=== PATIENT | male | born 1950 | race Caucasian/White ===

== ENCOUNTER 2018-04-24 12:07 | Inpatient (IN) | payer MEDICARE, MEDICAID ==
[2018-04-24 12:28] VITALS: BP 136/90
[2018-04-24] MEDS ORDERED: Maalox 30 mL Cup PO PRN (12:44)
[2018-04-24] MEDS ORDERED: Magnesium Hydroxide (MOM) 30 mL UDC PO PRN (12:44)
[2018-04-25] MEDS: Multivitamin Tab PO SCH (09:04)
--- NOTE | 2018-04-25 09:38 | Diagnostic Imaging Report ---
CHEST X-RAY: AP view INDICATION: Pneumonia COMPARISON: None FINDINGS: Bibasal atelectatic changes are seen. No focal consolidation or pleural effusions. There may be left lower lung zone pleural calcifications. Right apical densities with probable scarring is also noted. Mild cardiomegaly is noted. Degenerative changes of the spine are noted. IMPRESSION: Bibasal atelectatic changes. No focal consolidation identified. There may be calcifications along the left lower lung zone pleura and possible right apex with right apical scarring. Please correlate with clinical history and old exams. CT chest would further clarify. Mild cardiomegaly.
--- NOTE | 2018-04-25 16:52 | Psychiatric Evaluation ---
DATE OF SERVICE: 04/25/2018 IDENTIFYING DATA: The patient is a 68-year-old male admitted on a 5150 as being gravely disabled. CHIEF COMPLAINT: "I am feeling depressed." HISTORY OF PRESENT ILLNESS: This is the first psychiatric hospitalization to [facility] who has been referred from the [facility]. The patient is reported to be confused and depressed and has no place to return to and the patient has been cleared medically at [facility] and has been admitted over here for stabilization. During the evaluation, the patient is stating that he has been feeling depressed, has been having problem with the sleep and appetite and feeling helpless and hopeless, could not figure it out what he has to do. The patient is noted to be confused and is also noted to be disheveled. PAST PSYCHIATRIC HISTORY: None. MEDICAL HISTORY: Physical examination is requested by Dr. Abhilash Anderson. SUBSTANCE ABUSE HISTORY: None. PHYSICAL OR SEXUAL ABUSE HISTORY: None. LEGAL PROBLEMS: None at this time. STRENGTH AND ASSETS: The patient is motivated. MENTAL STATUS EXAMINATION: The patient is a 68-year-old, looking his stated age, superficially cooperative. Eye contact is poor. Mood is depressed. Affect is constricted. The patient has been having difficult time to cope with the stress. The patient is alert and oriented to place and the patient has been having problem with short-term as well as long-term memory deficits. The patient has no suicidal plans, but is noted to be feeling frustrated and feeling helpless and hopeless. DIAGNOSTIC IMPRESSION: AXIS I: Major depressive disorder, first episode. B. Dementia. AXIS II: None. AXIS III: As per Dr. Hung. IMMEDIATE TREATMENT PLAN: The patient is going to be observed on inpatient unit, provided with supportive psychotherapy. The patient is going to be closely monitored and encouraged to verbalize the concerns rather than to act out. Once stabilized, the patient is going to be discharged to [facility], to be followed up on an outpatient basis. The patient is going to be started with low dose of the Lexapro. environmental services coordinator going to be involved to help the patient with the placement. JOB# [id number]
--- NOTE | 2018-04-25 23:27 | History & Physical ---
ADMIT DATE: HISTORY OF PRESENT ILLNESS: The patient came to the Geropsych Unit and was admitted. The patient was referred from [facility]. The patient is very confused and very depressed and he was admitted for that. The patient has no major medical problems or surgical problem. PHYSICAL EXAMINATION: HEAD: Normal. ENT: Normal. NECK: Supple, nontender. LUNGS: Clear. CARDIOVASCULAR SYSTEM: S1, S2 heard. ABDOMEN: Soft. Bowel sounds are heard. CENTRAL NERVOUS SYSTEM: Grossly normal. DIAGNOSES: Major depressive disorder and dementia. PLAN: The patient is being admitted. I will follow along with Dr. Martinez. JOB# [id number]
[2018-04-26] MEDS: Multivitamin Tab PO SCH (09:37)
--- NOTE | 2018-04-26 15:39 | General Progress Note ---
Subjective - Review of Systems Events since last encounter: patient awake depressed withdrawn Objective - Physical Exam Vitals and I&O: Vital Signs Temp 98.9 F 04/26/18 15:10 Pulse 72 04/26/18 15:10 Resp 20 04/26/18 15:10 BP 144/78 04/26/18 15:10 Pulse Ox 96 04/26/18 15:10 Intake & Output 04/25/18 04/26/18 04/26/18 18:59 06:59 18:59 Intake Total 240 Balance 240 Intake: Oral 240 Other: # Voids 1 # Bowel Movements 0 Active Medications: Current Medications Acetaminophen (Tylenol) 650 mg PO Q4HR PRN PRN Reason: Mild Pain / Temp above 100 Stop: 06/23/18 12:43 Al Hydrox/Mg Hydrox/Simethicone (Maalox) 30 ml PO Q4HR PRN PRN Reason: GI DISTRESS Stop: 06/23/18 12:43 Escitalopram Oxalate (Lexapro) 10 mg PO DAILY BE; Protocol Stop: 06/24/18 08:59 Last Admin: 04/26/18 09:37 Dose: 10 mg Lorazepam (Ativan) 0.5 mg PO Q4HR PRN; Protocol PRN Reason: Anxiety Stop: 05/24/18 12:43 Magnesium Hydroxide (Milk Of Magnesia) 30 ml PO HS PRN PRN Reason: Constipation Multivitamins/Vitamin C (Theragran) 1 tab PO DAILY BE Stop: 06/24/18 08:59 Last Admin: 04/26/18 09:37 Dose: 1 tab Zolpidem Tartrate (Ambien) 5 mg PO HS PRN PRN Reason: Insomnia Stop: 06/23/18 12:43
--- NOTE | 2018-04-26 23:29 | Consultation ---
DATE OF CONSULTATION: 04/26/2018 REFERRING PHYSICIAN: Bishnu Martinez MD TYPE OF CONSULTATION: Psychology. HISTORY OF PRESENT ILLNESS: The patient is a 68-year-old male. The patient was transferred from [facility] to the Geropsychiatric unit here on a 5150 as being gravely disabled. Record review indicates the patient had become very confused and depressed and was unclear about where he is living. The patient reports that he is feeling depressed, but denied feeling helpless or hopeless. The patient seems to be essentially confused and disoriented. The patient denied any suicidal ideation, plan or intention or any wish to . PAST MEDICAL HISTORY: Please see history and physical by Dr. Hung. PAST PSYCHIATRIC HISTORY: No records are available. There is no history. SUBSTANCE ABUSE HISTORY: The patient denied any history. PSYCHOSOCIAL HISTORY: The patient is disoriented and did not know his place of residence. The patient did not respond to occupational or educational history or mu-ism affiliation questions. The patient denies any history of physical abuse. The patient did not answer the question about current legal problems. The patient continued to state that he wishes to return home, but does not know where he is living. academic services coordinator is involved in the patient's care and possible placement along with the attending psychiatrist. MENTAL STATUS EXAMINATION: The patient appears to be his stated age. The patient's attitude is cooperative. Eye contact is fair. Speech is spontaneous. Mood is depressed. Affect is constricted. The patient seems motivated for treatment. The patient denied any suicidal ideation, plan or intention. The patient denied any auditory or visual hallucinations. The patient presents as confused with possible short term and long-term deficits. There are cognitive deficits as well. The patient's behavior has been compliant with care and treatment. Impulse control is fair. Concentration is poor. The patient was unable to repeat 3 items given to him in the first and second time. The patient was unable to recall any of the items after several minutes. Short term and remote computer terminal operator memory seemed to be impaired. The patient did not participate in the interpretation of proverbs. Sensorium is alert and oriented to self and place only. Insight is poor. Judgment is compromised. DIAGNOSTIC IMPRESSION: AXIS I: Major depressive disorder, first episode, moderate to severe. AXIS II: Deferred. AXIS III: Please see history and physical by Dr. Abhilash. TREATMENT PLAN: The patient has been seen by Dr. Martinez for psychiatric evaluation and for the management of the patient's psychotropic medications. Evaluation for possible dementia should be considered. We will provide supportive psychotherapy and encourage the patient to be able to verbalize his concerns. We will provide reality orientation, differentiation and integration. We will provide coping strategies for phase of life issues. The patient is being started on a low dose of Lexapro according to the attending psychiatrist. academic services coordinator will be involved to help the patient with possible placement. Thank you, Dr. Martinez, for this consult and the opportunity to participate in this patient's care. JOB# [id number] DONALD
--- NOTE | 2018-04-27 02:22 | Progress Notes ---
DATE: 04/26/2018 PSYCHIATRIC PROGRESS NOTE SUBJECTIVE: Staff was spoken to. The patient is interviewed. Mood is noted to be irritable. Affect is constricted. The patient has been going on a tangent. Insight and judgment are noted to be very much impaired. Impulse control is noted to be poor. The patient has no place to return to. Coping skills at this time are noted to be extremely poor. ASSESSMENT: The patient is still depressed and gravely disabled and has no place to return to. PLAN: To continue the patient with supportive therapy. I encouraged the patient to verbalize the concerns rather than to act out. JOB# [id number]
[2018-04-27] MEDS: Multivitamin Tab PO SCH (08:35)
--- NOTE | 2018-04-27 15:42 | Progress Notes ---
DATE: 04/27/2018 SUBJECTIVE: Staff was spoken to. The patient is interviewed. Mood is noted to be irritable. Affect is constricted. Coping skills are noted to be still poor. The patient has been having difficult time to cope with the stress. Personal hygiene is noted to be extremely poor. The patient has no place to return to and the patient has been displaying short term memory deficits, but long-term memory seems to be fair. ASSESSMENT: The patient is still depressed and awaiting placement. PLAN: To continue the patient with the supportive therapy. Encouraged the patient verbalize the consent rather than to act out. JOB# [id number]
[2018-04-28] MEDS: Multivitamin Tab PO SCH (09:28)
--- NOTE | 2018-04-28 14:12 | General Progress Note ---
Subjective - Review of Systems Events since last encounter: patient still depressed withdrawn waiting for placement Objective - Physical Exam Vitals and I&O: Vital Signs Temp 0 F 04/28/18 06:28 Pulse 83 04/27/18 20:10 Resp 19 04/27/18 20:10 BP 133/72 04/27/18 20:10 Pulse Ox 97 04/27/18 20:10 Intake & Output 04/27/18 04/28/18 04/28/18 18:59 06:59 18:59 Intake Total 900 120 Balance 900 120 Intake: Oral 900 120 Other: # Voids 4 3 # Bowel Movements 1 0 Active Medications: Current Medications Acetaminophen (Tylenol) 650 mg PO Q4HR PRN PRN Reason: Mild Pain / Temp above 100 Stop: 06/23/18 12:43 Al Hydrox/Mg Hydrox/Simethicone (Maalox) 30 ml PO Q4HR PRN PRN Reason: GI DISTRESS Stop: 06/23/18 12:43 Escitalopram Oxalate (Lexapro) 10 mg PO DAILY BE; Protocol Stop: 06/24/18 08:59 Last Admin: 04/28/18 09:28 Dose: 10 mg Lorazepam (Ativan) 0.5 mg PO Q4HR PRN; Protocol PRN Reason: Anxiety Stop: 05/24/18 12:43 Magnesium Hydroxide (Milk Of Magnesia) 30 ml PO HS PRN PRN Reason: Constipation Multivitamins/Vitamin C (Theragran) 1 tab PO DAILY BE Stop: 06/24/18 08:59 Last Admin: 04/28/18 09:28 Dose: 1 tab Zolpidem Tartrate (Ambien) 5 mg PO HS PRN PRN Reason: Insomnia Stop: 06/23/18 12:43
--- NOTE | 2018-04-29 01:25 | Progress Notes ---
DATE: 04/28/2018 PSYCHIATRIC PROGRESS NOTE Staff was spoken to. The patient is interviewed. Mood is noted to be irritable. Affect is constricted. Insight and judgment noted to be still impaired. Impulse control is noted to be limited. Coping skills are noted to be limited. The patient is getting easily paranoid. The patient has been going on a tangent and not able to contract for safety. The patient has also been complaining of insomnia. In view of this one, the patient is going to be placed on the Seroquel 12.5 mg at bedtime and the patient is going to be followed up. The patient has no place to return to. JOB# [id number]
[2018-04-29] MEDS: Multivitamin Tab PO SCH (08:22)
--- NOTE | 2018-04-29 11:39 | General Progress Note ---
Subjective - Review of Systems Events since last encounter: patient still irritable confused Objective - Physical Exam Vitals and I&O: Vital Signs Temp 0 F 04/28/18 06:28 Pulse 83 04/27/18 20:10 Resp 20 04/28/18 19:41 BP 133/72 04/27/18 20:10 Pulse Ox 97 04/27/18 20:10 Intake & Output 04/28/18 04/29/18 04/29/18 18:59 06:59 18:59 Intake Total 900 120 Balance 900 120 Intake: Oral 900 120 Other: # Voids 3 3 # Bowel Movements 1 Active Medications: Current Medications Acetaminophen (Tylenol) 650 mg PO Q4HR PRN PRN Reason: Mild Pain / Temp above 100 Stop: 06/23/18 12:43 Al Hydrox/Mg Hydrox/Simethicone (Maalox) 30 ml PO Q4HR PRN PRN Reason: GI DISTRESS Stop: 06/23/18 12:43 Escitalopram Oxalate (Lexapro) 10 mg PO DAILY BE; Protocol Stop: 06/24/18 08:59 Last Admin: 04/29/18 08:22 Dose: 10 mg Lorazepam (Ativan) 0.5 mg PO Q4HR PRN; Protocol PRN Reason: Anxiety Stop: 05/24/18 12:43 Last Admin: 04/28/18 16:03 Dose: 0.5 mg Magnesium Hydroxide (Milk Of Magnesia) 30 ml PO HS PRN PRN Reason: Constipation Multivitamins/Vitamin C (Theragran) 1 tab PO DAILY BE Stop: 06/24/18 08:59 Last Admin: 04/29/18 08:22 Dose: 1 tab Quetiapine Fumarate (Seroquel) 12.5 mg PO HS BE; Protocol Stop: 06/27/18 20:59 Zolpidem Tartrate (Ambien) 5 mg PO HS PRN PRN Reason: Insomnia Stop: 06/23/18 12:43 Last Admin: 04/28/18 22:01 Dose: 5 mg Nutritional Asmnt/Malnutr-PDOC - Dietary Evaluation Malnutrition Findings (Please click <Entered> for more info): Nutritional Asmnt/Malnutrition Start: 04/28/18 14: 41 Text: Status: Complete Freq: Protocol: Document 04/28/18 14:41 SAY (Rec: 04/28/18 14:51 SAY [id number]) Nutritional Asmnt/Malnutrition Patient General Information Nutritional Screening Moderate Risk Diagnosis psychosis Pertinent Medical Hx/Surgical Hx no major medical problems or surgical problem per H&P Subjective Information Pt seen eating lunch in dining room at time of visit. Unclear speech, not able to understand. Per EMR, PO intake 100% of meals. Current Diet Order/ Nutrition Support mech soft chopped Pertinent Medications theragran Pertinent Labs no labs Nutritional Hx/Data Height 1.65 m Height (Calculated Centimeters) 165.1 Current Weight (lbs) 69.853 kg Weight (Calculated Kilograms) 69.9 Weight (Calculated Grams) 77107.2 [place] Body Weight 36 Body Mass Index (BMI) 25.6 Weight Status Overweight GI Symptoms GI Symptoms None Last BM 04/27 Difficult in: None Skin Integrity/Comment: intact Current %PO Good (75-100%) Estimated Nutritional Goals BEE in Kcals: Using Current wt Calories/Kcals/Kg 25-30 Kcals Calculated 6309-5236 Protein: Using Current wt Protein g/k Protein Calculated 70 Fluid: ml 1750-2250ml (1ml/kcal) Nutritional Problem No current Nutrition Prob Problem N/A Malnutrition Alert Is there a minimum of two criteria No selected? Query Text:Check all the applicable criteria. A minimum of two criteria are recommended for diagnosis of either severe or non-severe malnutrition. Malnutrition Related to Morbid Obesity Malnutrition related to morbid obesity No Intervention/Recommendation Comments 1. Continue with current diet as ordered. 2. Monitor PO intake, wt, labs and skin integrity 3. F/U as low risk in 7 days, 05/05 Expected Outcomes/Goals Expected Outcomes/Goals 1. PO intake to meet at least 75% of nutritional needs. 2. Wt stability, skin to remain intact, labs to approach WNL.
--- NOTE | 2018-04-29 22:15 | Progress Notes ---
DATE: 04/29/2018 SUBJECTIVE: Staff was spoken to. The patient is interviewed. Mood is noted to be irritable. Affect is constricted. The patient is getting easily frustrated. The patient has no place to return to and he is not able to articulate how he is going to be supporting himself. The patient is paranoid and depressed. PLAN: To continue the patient with the supportive therapy and current medications and follow up. [facility]# [id number]
[2018-04-30] MEDS: Multivitamin Tab PO SCH (09:32)
--- NOTE | 2018-05-01 04:16 | Progress Notes ---
DATE: 04/30/2018 SUBJECTIVE: Staff was spoken to. The patient is interviewed. Mood is noted to be irritable. Affect is constricted. The patient is getting easily upset. The patient's coping skills are noted to be poor. The patient has no place to return to. The patient is currently on low dose of Lexapro and the Seroquel and has been able to tolerate the medications. ASSESSMENT: The patient is still depressed and gravely disabled. PLAN: To continue the patient with the supportive therapy and work with the case therapist in finding a place for this patient. JOB# [id number]
[2018-05-01] MEDS: Multivitamin Tab PO SCH (09:39)
--- NOTE | 2018-05-01 09:58 | Internal Medicine Prog Note ---
Internal Medicine Subjective - Subjective Service Date: 05/01/18 Patient seen and examined:: with staff Patient is:: awake Per staff patient has:: tolerating meds Internal Medicine Objective - Physical Exam Vitals and I&O: Vital Signs Temp 0 F 05/01/18 06:35 Pulse 76 04/30/18 21:12 Resp 20 04/30/18 21:12 BP 146/80 04/30/18 21:12 Pulse Ox 97 04/30/18 21:12 Intake & Output 04/30/18 05/01/18 05/01/18 18:59 06:59 18:59 Intake Total 1200 240 Balance 1200 240 Intake: Oral 1200 240 Other: # Voids 3 # Bowel Movements 1 0 Active Medications: Current Medications Acetaminophen (Tylenol) 650 mg PO Q4HR PRN PRN Reason: Mild Pain / Temp above 100 Stop: 06/23/18 12:43 Al Hydrox/Mg Hydrox/Simethicone (Maalox) 30 ml PO Q4HR PRN PRN Reason: GI DISTRESS Stop: 06/23/18 12:43 Escitalopram Oxalate (Lexapro) 10 mg PO DAILY BE; Protocol Stop: 06/24/18 08:59 Last Admin: 05/01/18 09:39 Dose: 10 mg Lorazepam (Ativan) 0.5 mg PO Q4HR PRN; Protocol PRN Reason: Anxiety Stop: 05/24/18 12:43 Last Admin: 04/28/18 16:03 Dose: 0.5 mg Magnesium Hydroxide (Milk Of Magnesia) 30 ml PO HS PRN PRN Reason: Constipation Multivitamins/Vitamin C (Theragran) 1 tab PO DAILY BE Stop: 06/24/18 08:59 Last Admin: 05/01/18 09:39 Dose: 1 tab Quetiapine Fumarate (Seroquel) 12.5 mg PO HS BE; Protocol Stop: 06/27/18 20:59 Last Admin: 04/30/18 21:12 Dose: 12.5 mg Zolpidem Tartrate (Ambien) 5 mg PO HS PRN PRN Reason: Insomnia Stop: 06/23/18 12:43 Last Admin: 04/28/18 22:01 Dose: 5 mg General: alert HEENT: NC/AT, PERRLA Neck: Supple Lungs: CTAB Cardiovascular: RRR, Normal S1, Normal S2, without murmur Abdomen: soft, non-tender, non-distended, positive bowel sound Neurological: alert Internal Medicine Assmt/Plan - Assessment Assessment: major depressive disorder dementia - Plan Plan: cpm Nutritional Asmnt/Malnutr-PDOC - Dietary Evaluation Malnutrition Findings (Please click <Entered> for more info): Nutritional Asmnt/Malnutrition Start: 04/28/18 14: 41 Text: Status: Complete Freq: Protocol: Document 04/28/18 14:41 PORFIRIOG (Rec: 04/28/18 14:51 LCHENG [id number]) Nutritional Asmnt/Malnutrition Patient General Information Nutritional Screening Moderate Risk Diagnosis psychosis Pertinent Medical Hx/Surgical Hx no major medical problems or surgical problem per H&P Subjective Information Pt seen eating lunch in dining room at time of visit. Unclear speech, not able to understand. Per EMR, PO intake 100% of meals. Current Diet Order/ Nutrition Support mech soft chopped Pertinent Medications theragran Pertinent Labs no labs Nutritional Hx/Data Height 5 ft 5 in Height (Calculated Centimeters) 165.1 Current Weight (lbs) 154 lb Weight (Calculated Kilograms) 69.9 Weight (Calculated Grams) 55045.2 [place] Body Weight 36 Body Mass Index (BMI) 25.6 Weight Status Overweight GI Symptoms GI Symptoms None Last BM 04/27 Difficult in: None Skin Integrity/Comment: intact Current %PO Good (75-100%) Estimated Nutritional Goals BEE in Kcals: Using Current wt Calories/Kcals/Kg 25-30 Kcals Calculated 6272-2313 Protein: Using Current wt Protein g/k Protein Calculated 70 Fluid: ml 1750-2250ml (1ml/kcal) Nutritional Problem No current Nutrition Prob Problem N/A Malnutrition Alert Is there a minimum of two criteria No selected? Query Text:Check all the applicable criteria. A minimum of two criteria are recommended for diagnosis of either severe or non-severe malnutrition. Malnutrition Related to Morbid Obesity Malnutrition related to morbid obesity No Intervention/Recommendation Comments 1. Continue with current diet as ordered. 2. Monitor PO intake, wt, labs and skin integrity 3. F/U as low risk in 7 days, 05/05 Expected Outcomes/Goals Expected Outcomes/Goals 1. PO intake to meet at least 75% of nutritional needs. 2. Wt stability, skin to remain intact, labs to approach WNL.
--- NOTE | 2018-05-01 23:43 | Progress Notes ---
DATE: 05/01/2018 SUBJECTIVE: Staff was spoken to. The patient is interviewed. Mood is noted to be irritable. Affect is constricted. The patient has been getting easily frustrated. Insight and judgment are noted to be impaired. Impulse control is noted to be poor. Coping skills are also noted to be very poor. The patient has been having difficult time to cope with the stress. The patient is currently on the Lexapro and Seroquel. The dose of the Seroquel is going to be gradually increased to 25 mg and the patient is going to be followed up. The patient has no place to return to plan to work with the senior case manager and finding the patient a place to stay. ASSESSMENT: The patient is still depressed and paranoid. PLAN: To continue the patient with the supportive therapy and I encouraged the patient to verbalize the concerns rather than to act out. JOB# [id number]
[2018-05-02] MEDS: Multivitamin Tab PO SCH (09:15)
--- NOTE | 2018-05-02 10:44 | Progress Notes ---
DATE: 05/02/2018 SUBJECTIVE: Staff was spoken to. The patient is interviewed. Mood is noted to be irritable. Affect is constricted. The patient's insight and judgment are noted to be still impaired. Impulse control is noted to be limited. The patient is stating that he does not need to be on any medications. The patient's coping skills at this time are noted to be very poor. The patient has been having difficult time to cope with the stress. Personal hygiene is noted to be extremely poor. ASSESSMENT: The patient is still depressed and paranoid. PLAN: To continue the patient with the Lexapro and Seroquel and follow the patient. JOB# [id number]
--- NOTE | 2018-05-02 13:00 | General Progress Note ---
Subjective - Review of Systems Events since last encounter: patient stress irritable no signs of pain Objective - Physical Exam Vitals and I&O: Vital Signs Temp 98.5 F 05/01/18 20:00 Pulse 68 05/01/18 20:00 Resp 20 05/01/18 20:00 BP 129/76 05/01/18 20:00 Pulse Ox 97 05/01/18 20:00 Intake & Output 05/01/18 05/02/18 05/02/18 18:59 06:59 18:59 Intake Total 1100 Balance 1100 Intake: Oral 1100 Other: # Voids 4 # Bowel Movements 1 Active Medications: Current Medications Acetaminophen (Tylenol) 650 mg PO Q4HR PRN PRN Reason: Mild Pain / Temp above 100 Stop: 06/23/18 12:43 Al Hydrox/Mg Hydrox/Simethicone (Maalox) 30 ml PO Q4HR PRN PRN Reason: GI DISTRESS Stop: 06/23/18 12:43 Escitalopram Oxalate (Lexapro) 10 mg PO DAILY BE; Protocol Stop: 06/24/18 08:59 Last Admin: 05/02/18 09:15 Dose: 10 mg Lorazepam (Ativan) 0.5 mg PO Q4HR PRN; Protocol PRN Reason: Anxiety Stop: 05/24/18 12:43 Last Admin: 04/28/18 16:03 Dose: 0.5 mg Magnesium Hydroxide (Milk Of Magnesia) 30 ml PO HS PRN PRN Reason: Constipation Multivitamins/Vitamin C (Theragran) 1 tab PO DAILY BE Stop: 06/24/18 08:59 Last Admin: 05/02/18 09:15 Dose: 1 tab Quetiapine Fumarate (Seroquel) 25 mg PO HS BE; Protocol Stop: 06/30/18 20:59 Last Admin: 05/01/18 21:12 Dose: 25 mg Zolpidem Tartrate (Ambien) 5 mg PO HS PRN PRN Reason: Insomnia Stop: 06/23/18 12:43 Last Admin: 05/01/18 21:12 Dose: 5 mg General: No acute distress HEENT: Atraumatic, PERRLA Neck: Supple Cardiovascular: Regular rate, Normal S1, Normal S2 Lungs: Clear to auscultation Nutritional Asmnt/Malnutr-PDOC - Dietary Evaluation Malnutrition Findings (Please click <Entered> for more info): Nutritional Asmnt/Malnutrition Start: 04/28/18 14: 41 Text: Status: Complete Freq: Protocol: Document 04/28/18 14:41 SAY (Rec: 04/28/18 14:51 [id number]) Nutritional Asmnt/Malnutrition Patient General Information Nutritional Screening Moderate Risk Diagnosis psychosis Pertinent Medical Hx/Surgical Hx no major medical problems or surgical problem per H&P Subjective Information Pt seen eating lunch in dining room at time of visit. Unclear speech, not able to understand. Per EMR, PO intake 100% of meals. Current Diet Order/ Nutrition Support mech soft chopped Pertinent Medications theragran Pertinent Labs no labs Nutritional Hx/Data Height 1.65 m Height (Calculated Centimeters) 165.1 Current Weight (lbs) 69.853 kg Weight (Calculated Kilograms) 69.9 Weight (Calculated Grams) 28556.2 [place] Body Weight 36 Body Mass Index (BMI) 25.6 Weight Status Overweight GI Symptoms GI Symptoms None Last BM 04/27 Difficult in: None Skin Integrity/Comment: intact Current %PO Good (75-100%) Estimated Nutritional Goals BEE in Kcals: Using Current wt Calories/Kcals/Kg 25-30 Kcals Calculated 7916-1657 Protein: Using Current wt Protein g/k Protein Calculated 70 Fluid: ml 1750-2250ml (1ml/kcal) Nutritional Problem No current Nutrition Prob Problem N/A Malnutrition Alert Is there a minimum of two criteria No selected? Query Text:Check all the applicable criteria. A minimum of two criteria are recommended for diagnosis of either severe or non-severe malnutrition. Malnutrition Related to Morbid Obesity Malnutrition related to morbid obesity No Intervention/Recommendation Comments 1. Continue with current diet as ordered. 2. Monitor PO intake, wt, labs and skin integrity 3. F/U as low risk in 7 days, 05/05 Expected Outcomes/Goals Expected Outcomes/Goals 1. PO intake to meet at least 75% of nutritional needs. 2. Wt stability, skin to remain intact, labs to approach WNL.
[2018-05-03] MEDS: Multivitamin Tab PO SCH (10:00)
--- NOTE | 2018-05-04 00:21 | Progress Notes ---
DATE: 05/03/2018 PSYCHIATRIC PROGRESS NOTE SUBJECTIVE: Staff was spoken to. The patient is interviewed. Mood is noted to be irritable. Affect is constricted. The patient is isolative and withdrawn. Coping skills are noted to be poor. The patient has not been able to contact anyone from his family so far. The patient is getting easily irritable. The patient has no place to return to. Personal hygiene continues to be very poor. ASSESSMENT: The patient is still depressed and psychotic. PLAN: To continue the patient with the supportive therapy and work with the leather case finisher with regards to the placement of this patient. JOB# [id number]
[2018-05-04] MEDS: Multivitamin Tab PO SCH (08:34)
--- NOTE | 2018-05-04 23:26 | Progress Notes ---
DATE: 05/04/2018 PSYCHIATRIC PROGRESS NOTE PROGRESS ON THE UNIT: Staff was spoken to. The patient is interviewed. Mood is noted to be dysphoric. The patient is not making any sense. The patient has no place to return to. He continues to be paranoid and has been reluctant to comply with the medications. ASSESSMENT: The patient is still psychotic and demented. PLAN: To continue the patient with supportive therapy and work with the manager rn case in finding placement for this patient. JOB# [id number]
[2018-05-05] MEDS: Multivitamin Tab PO SCH (08:43)
--- NOTE | 2018-05-05 21:13 | General Progress Note ---
Subjective - Review of Systems Service Date: 05/05/18 Events since last encounter: awake, nad Objective - Physical Exam Vitals and I&O: Vital Signs Temp 99.4 F 05/05/18 14:00 Pulse 88 05/05/18 14:00 Resp 20 05/05/18 14:00 BP 124/66 05/05/18 14:00 Pulse Ox 97 05/05/18 14:00 Intake & Output 05/05/18 05/05/18 05/06/18 06:59 18:59 06:59 Intake Total 240 1800 Balance 240 1800 Intake: Oral 240 1800 Other: # Voids 2 4 # Bowel Movements 0 0 Active Medications: Current Medications Acetaminophen (Tylenol) 650 mg PO Q4HR PRN PRN Reason: Mild Pain / Temp above 100 Stop: 06/23/18 12:43 Al Hydrox/Mg Hydrox/Simethicone (Maalox) 30 ml PO Q4HR PRN PRN Reason: GI DISTRESS Stop: 06/23/18 12:43 Escitalopram Oxalate (Lexapro) 10 mg PO DAILY BE; Protocol Stop: 06/24/18 08:59 Last Admin: 05/05/18 08:43 Dose: 10 mg Lorazepam (Ativan) 0.5 mg PO Q4HR PRN; Protocol PRN Reason: Anxiety Stop: 05/24/18 12:43 Last Admin: 04/28/18 16:03 Dose: 0.5 mg Magnesium Hydroxide (Milk Of Magnesia) 30 ml PO HS PRN PRN Reason: Constipation Multivitamins/Vitamin C (Theragran) 1 tab PO DAILY BE Stop: 06/24/18 08:59 Last Admin: 05/05/18 08:43 Dose: 1 tab Quetiapine Fumarate (Seroquel) 25 mg PO HS BE; Protocol Stop: 06/30/18 20:59 Last Admin: 05/05/18 20:52 Dose: 25 mg Zolpidem Tartrate (Ambien) 5 mg PO HS PRN PRN Reason: Insomnia Stop: 06/23/18 12:43 Last Admin: 05/01/18 21:12 Dose: 5 mg General: No acute distress HEENT: Atraumatic, PERRLA Neck: Supple Cardiovascular: Regular rate, Normal S1, Normal S2 Lungs: Clear to auscultation Assessment/Plan - Assessment Assessment: major depressive disorder dementia - Plan Plan: cpm Nutritional Asmnt/Malnutr-PDOC - Dietary Evaluation Malnutrition Findings (Please click <Entered> for more info): Nutritional Asmnt/Malnutrition Start: 04/28/18 14: 41 Text: Status: Complete Freq: Protocol: Document 04/28/18 14:41 LCKERENG (Rec: 04/28/18 14:51 [email or web address] [email or web address]) Nutritional Asmnt/Malnutrition Patient General Information Nutritional Screening Moderate Risk Diagnosis psychosis Pertinent Medical Hx/Surgical Hx no major medical problems or surgical problem per H&P Subjective Information Pt seen eating lunch in dining room at time of visit. Unclear speech, not able to understand. Per EMR, PO intake 100% of meals. Current Diet Order/ Nutrition Support mech soft chopped Pertinent Medications theragran Pertinent Labs no labs Nutritional Hx/Data Height 1.65 m Height (Calculated Centimeters) 165.1 Current Weight (lbs) 69.853 kg Weight (Calculated Kilograms) 69.9 Weight (Calculated Grams) 50906.2 [place] Body Weight 36 Body Mass Index (BMI) 25.6 Weight Status Overweight GI Symptoms GI Symptoms None Last BM 04/27 Difficult in: None Skin Integrity/Comment: intact Current %PO Good (75-100%) Estimated Nutritional Goals BEE in Kcals: Using Current wt Calories/Kcals/Kg 25-30 Kcals Calculated 0163-1585 Protein: Using Current wt Protein g/k Protein Calculated 70 Fluid: ml 1750-2250ml (1ml/kcal) Nutritional Problem No current Nutrition Prob Problem N/A Malnutrition Alert Is there a minimum of two criteria No selected? Query Text:Check all the applicable criteria. A minimum of two criteria are recommended for diagnosis of either severe or non-severe malnutrition. Malnutrition Related to Morbid Obesity Malnutrition related to morbid obesity No Intervention/Recommendation Comments 1. Continue with current diet as ordered. 2. Monitor PO intake, wt, labs and skin integrity 3. F/U as low risk in 7 days, 05/05 Expected Outcomes/Goals Expected Outcomes/Goals 1. PO intake to meet at least 75% of nutritional needs. 2. Wt stability, skin to remain intact, labs to approach WNL.
--- NOTE | 2018-05-06 00:49 | Progress Notes ---
DATE: 05/05/2018 PSYCHIATRIC PROGRESS NOTE SUBJECTIVE: Staff was spoken to. The patient is interviewed. Mood is noted to be irritable. Affect is constricted. Coping skills are noted to be still poor. The patient has paranoia, but denies any command hallucinations. The patient has no place to return to. The patient is frustrated and the patient's personal hygiene is noted to be extremely poor. ASSESSMENT: The patient is still psychotic and impulsive. PLAN: To continue the patient with the current medications and await for placement. JOB# [id number]
[2018-05-06] MEDS: Multivitamin Tab PO SCH (08:59)
--- NOTE | 2018-05-06 11:06 | General Progress Note ---
Subjective - Review of Systems Events since last encounter: awake alert no distress Objective - Physical Exam Vitals and I&O: Vital Signs Temp 97.2 F 05/06/18 06:23 Pulse 85 05/06/18 06:23 Resp 20 05/06/18 06:23 BP 115/67 05/06/18 06:23 Pulse Ox 97 05/06/18 06:23 Intake & Output 05/05/18 05/06/18 05/06/18 18:59 06:59 18:59 Intake Total 1800 120 Balance 1800 120 Intake: Oral 1800 120 Other: # Voids 4 3 # Bowel Movements 0 Active Medications: Current Medications Acetaminophen (Tylenol) 650 mg PO Q4HR PRN PRN Reason: Mild Pain / Temp above 100 Stop: 06/23/18 12:43 Al Hydrox/Mg Hydrox/Simethicone (Maalox) 30 ml PO Q4HR PRN PRN Reason: GI DISTRESS Stop: 06/23/18 12:43 Escitalopram Oxalate (Lexapro) 10 mg PO DAILY BE; Protocol Stop: 06/24/18 08:59 Last Admin: 05/06/18 08:59 Dose: 10 mg Lorazepam (Ativan) 0.5 mg PO Q4HR PRN; Protocol PRN Reason: Anxiety Stop: 05/24/18 12:43 Last Admin: 04/28/18 16:03 Dose: 0.5 mg Magnesium Hydroxide (Milk Of Magnesia) 30 ml PO HS PRN PRN Reason: Constipation Multivitamins/Vitamin C (Theragran) 1 tab PO DAILY BE Stop: 06/24/18 08:59 Last Admin: 05/06/18 08:59 Dose: 1 tab Quetiapine Fumarate (Seroquel) 25 mg PO HS BE; Protocol Stop: 06/30/18 20:59 Last Admin: 05/05/18 20:52 Dose: 25 mg Zolpidem Tartrate (Ambien) 5 mg PO HS PRN PRN Reason: Insomnia Stop: 06/23/18 12:43 Last Admin: 05/01/18 21:12 Dose: 5 mg General: No acute distress HEENT: Atraumatic, PERRLA Neck: Supple Cardiovascular: Regular rate, Normal S1, Normal S2 Lungs: Clear to auscultation Assessment/Plan - Assessment Assessment: major depressive disorder dementia - Plan Plan: cpm Nutritional Asmnt/Malnutr-PDOC - Dietary Evaluation Malnutrition Findings (Please click <Entered> for more info): Nutritional Asmnt/Malnutrition Start: 04/28/18 14: 41 Text: Status: Complete Freq: Protocol: Document 04/28/18 14:41 SAY (Rec: 04/28/18 14:51 LCKERENG [email or web address]) Nutritional Asmnt/Malnutrition Patient General Information Nutritional Screening Moderate Risk Diagnosis psychosis Pertinent Medical Hx/Surgical Hx no major medical problems or surgical problem per H&P Subjective Information Pt seen eating lunch in dining room at time of visit. Unclear speech, not able to understand. Per EMR, PO intake 100% of meals. Current Diet Order/ Nutrition Support mech soft chopped Pertinent Medications theragran Pertinent Labs no labs Nutritional Hx/Data Height 1.65 m Height (Calculated Centimeters) 165.1 Current Weight (lbs) 69.853 kg Weight (Calculated Kilograms) 69.9 Weight (Calculated Grams) 60751.2 [place] Body Weight 36 Body Mass Index (BMI) 25.6 Weight Status Overweight GI Symptoms GI Symptoms None Last BM 04/27 Difficult in: None Skin Integrity/Comment: intact Current %PO Good (75-100%) Estimated Nutritional Goals BEE in Kcals: Using Current wt Calories/Kcals/Kg 25-30 Kcals Calculated 0958-4190 Protein: Using Current wt Protein g/k Protein Calculated 70 Fluid: ml 1750-2250ml (1ml/kcal) Nutritional Problem No current Nutrition Prob Problem N/A Malnutrition Alert Is there a minimum of two criteria No selected? Query Text:Check all the applicable criteria. A minimum of two criteria are recommended for diagnosis of either severe or non-severe malnutrition. Malnutrition Related to Morbid Obesity Malnutrition related to morbid obesity No Intervention/Recommendation Comments 1. Continue with current diet as ordered. 2. Monitor PO intake, wt, labs and skin integrity 3. F/U as low risk in 7 days, 05/05 Expected Outcomes/Goals Expected Outcomes/Goals 1. PO intake to meet at least 75% of nutritional needs. 2. Wt stability, skin to remain intact, labs to approach WNL.
--- NOTE | 2018-05-06 12:02 | Progress Notes ---
DATE: 05/06/2018 SUBJECTIVE: Staff was spoken to. The patient is interviewed. Mood is noted to be irritable. Affect is constricted. Coping skills are noted to be poor. The patient has both short-term as well as long-term memory deficits. The patient keeps on talking about his family, but he is not able to locate where they are at. The patient has no insight into his illness. ____ on alcohol is noted to be very high. ASSESSMENT: The patient is still confused and paranoid. PLAN: To continue the patient with the supportive therapy, encouraged the patient to verbalize the concerns rather than to act out. JOB# [id number]
[2018-05-07] MEDS: Multivitamin Tab PO SCH (08:05)
--- NOTE | 2018-05-07 12:04 | Internal Medicine Prog Note ---
Internal Medicine Subjective - Subjective Service Date: 05/07/18 Patient is:: awake Per staff patient has:: tolerating meds Internal Medicine Objective - Physical Exam Vitals and I&O: Vital Signs Temp 98.2 F 05/07/18 06:26 Pulse 71 05/07/18 06:26 Resp 20 05/07/18 06:26 BP 115/66 05/07/18 06:26 Pulse Ox 98 05/07/18 06:26 Intake & Output 05/06/18 05/07/18 05/07/18 18:59 06:59 18:59 Intake Total 1600 120 Balance 1600 120 Intake: Oral 1600 120 Other: # Voids 4 3 # Bowel Movements 1 Active Medications: Current Medications Acetaminophen (Tylenol) 650 mg PO Q4HR PRN PRN Reason: Mild Pain / Temp above 100 Stop: 06/23/18 12:43 Al Hydrox/Mg Hydrox/Simethicone (Maalox) 30 ml PO Q4HR PRN PRN Reason: GI DISTRESS Stop: 06/23/18 12:43 Escitalopram Oxalate (Lexapro) 10 mg PO DAILY BE; Protocol Stop: 06/24/18 08:59 Last Admin: 05/07/18 08:05 Dose: 10 mg Lorazepam (Ativan) 0.5 mg PO Q4HR PRN; Protocol PRN Reason: Anxiety Stop: 05/24/18 12:43 Last Admin: 04/28/18 16:03 Dose: 0.5 mg Magnesium Hydroxide (Milk Of Magnesia) 30 ml PO HS PRN PRN Reason: Constipation Multivitamins/Vitamin C (Theragran) 1 tab PO DAILY BE Stop: 06/24/18 08:59 Last Admin: 05/07/18 08:05 Dose: 1 tab Quetiapine Fumarate (Seroquel) 25 mg PO HS BE; Protocol Stop: 06/30/18 20:59 Last Admin: 05/06/18 21:12 Dose: 25 mg Zolpidem Tartrate (Ambien) 5 mg PO HS PRN PRN Reason: Insomnia Stop: 06/23/18 12:43 Last Admin: 05/01/18 21:12 Dose: 5 mg General: alert HEENT: NC/AT, PERRLA Neck: Supple Lungs: CTAB Cardiovascular: RRR, Normal S1, Normal S2, without murmur Abdomen: soft, non-tender, non-distended, positive bowel sound Neurological: alert Internal Medicine Assmt/Plan - Assessment Assessment: major depressive disorder dementia - Plan Plan: cpm Nutritional Asmnt/Malnutr-PDOC - Dietary Evaluation Malnutrition Findings (Please click <Entered> for more info): Nutritional Asmnt/Malnutrition Start: 04/28/18 14: 41 Text: Status: Complete Freq: Protocol: Document 04/28/18 14:41 SAY (Rec: 04/28/18 14:51 SAY [email or web address]) Nutritional Asmnt/Malnutrition Patient General Information Nutritional Screening Moderate Risk Diagnosis psychosis Pertinent Medical Hx/Surgical Hx no major medical problems or surgical problem per H&P Subjective Information Pt seen eating lunch in dining room at time of visit. Unclear speech, not able to understand. Per EMR, PO intake 100% of meals. Current Diet Order/ Nutrition Support mech soft chopped Pertinent Medications theragran Pertinent Labs no labs Nutritional Hx/Data Height 5 ft 5 in Height (Calculated Centimeters) 165.1 Current Weight (lbs) 154 lb Weight (Calculated Kilograms) 69.9 Weight (Calculated Grams) 15531.2 [place] Body Weight 36 Body Mass Index (BMI) 25.6 Weight Status Overweight GI Symptoms GI Symptoms None Last BM 04/27 Difficult in: None Skin Integrity/Comment: intact Current %PO Good (75-100%) Estimated Nutritional Goals BEE in Kcals: Using Current wt Calories/Kcals/Kg 25-30 Kcals Calculated 4103-0111 Protein: Using Current wt Protein g/k Protein Calculated 70 Fluid: ml 1750-2250ml (1ml/kcal) Nutritional Problem No current Nutrition Prob Problem N/A Malnutrition Alert Is there a minimum of two criteria No selected? Query Text:Check all the applicable criteria. A minimum of two criteria are recommended for diagnosis of either severe or non-severe malnutrition. Malnutrition Related to Morbid Obesity Malnutrition related to morbid obesity No Intervention/Recommendation Comments 1. Continue with current diet as ordered. 2. Monitor PO intake, wt, labs and skin integrity 3. F/U as low risk in 7 days, 05/05 Expected Outcomes/Goals Expected Outcomes/Goals 1. PO intake to meet at least 75% of nutritional needs. 2. Wt stability, skin to remain intact, labs to approach WNL.
--- NOTE | 2018-05-07 21:50 | Progress Notes ---
DATE: 05/07/2018 SUBJECTIVE: Staff was spoken to. The patient is interviewed. Mood is noted to be irritable. Affect is constricted. Coping skills are noted to be very poor. The patient has been having difficult time to cope with the stress. No side effects to the medications are noted. The patient is pacing most of the time on the unit. The patient is gravely disabled and is not able to provide any information with regard to his family. manager mechanical maintenance has been trying to locate a place for him. ASSESSMENT: The patient is still paranoid and depressed. PLAN: To continue the patient with the supportive therapy and follow up. JOB# [id number]
[2018-05-08] MEDS: Multivitamin Tab PO SCH (08:47)
--- NOTE | 2018-05-08 13:23 | Progress Notes ---
DATE: 05/08/2018 PSYCHIATRIC PROGRESS NOTE PROGRESS ON THE UNIT: Staff was spoken to. The patient is interviewed. Mood is noted to be irritable. Affect is constricted. The patient's coping skills are noted to be poor. The patient has been having difficult time to cope with the stress. No side effects to the medications are noted. ASSESSMENT: The patient is still impulsive. PLAN: To continue the patient with supportive therapy. Encouraged the patient to verbalize the concerns rather than to act out. The patient has no place to return to; keycase assembler is working with this. JOB# [id number]
--- NOTE | 2018-05-08 19:04 | Progress Notes ---
DATE: 05/08/2018 SUBJECTIVE: The patient was seen in the dining area. The patient appears to be guarded, irritable and poor historian. Otherwise, the patient appears to be in no acute distress. OBJECTIVE: VITAL SIGNS: Temperature 99, heart rate 78, blood pressure 121/59, respirations 18, 96% on room air. HEENT: Head is atraumatic and normocephalic. Eyes: Bilateral conjunctivae are clear. Bilateral pupils are equally round and reactive. NECK: Supple. No JVD. CARDIOVASCULAR: S1 and S2, without murmur. PULMONARY: Clear to auscultation. GASTROINTESTINAL: Soft and nontender without guarding. Positive bowel sounds. MUSCULOSKELETAL: No clubbing. No cyanosis noted. ASSESSMENT: 1. Dementia. 2. Osteoarthritis. 3. Insomnia. PLAN: We will keep the patient inpatient Psychiatric Unit. We will follow up with psychiatrist to monitor the patient's condition and behavior. Treatment plans were discussed with the patient's nurse. Treatment plans were discussed with Dr. Hung. JOB# [id number]
[2018-05-09] MEDS: Multivitamin Tab PO SCH (09:09)
--- NOTE | 2018-05-09 09:15 | General Progress Note ---
Subjective - Review of Systems Events since last encounter: patient still irritable withdrawn Objective - Physical Exam Vitals and I&O: Vital Signs Temp 98.6 F 05/09/18 06:41 Pulse 85 05/09/18 06:41 Resp 18 05/09/18 06:41 BP 110/68 05/09/18 06:41 Pulse Ox 98 05/09/18 06:41 Intake & Output 05/08/18 05/09/18 05/09/18 18:59 06:59 18:59 Intake Total 1000 240 Balance 1000 240 Intake: Oral 1000 240 Other: # Voids 4 2 # Bowel Movements 1 Active Medications: Current Medications Acetaminophen (Tylenol) 650 mg PO Q4HR PRN PRN Reason: Mild Pain / Temp above 100 Stop: 06/23/18 12:43 Al Hydrox/Mg Hydrox/Simethicone (Maalox) 30 ml PO Q4HR PRN PRN Reason: GI DISTRESS Stop: 06/23/18 12:43 Escitalopram Oxalate (Lexapro) 10 mg PO DAILY BE; Protocol Stop: 06/24/18 08:59 Last Admin: 05/09/18 09:09 Dose: 10 mg Lorazepam (Ativan) 0.5 mg PO Q4HR PRN; Protocol PRN Reason: Anxiety Stop: 05/24/18 12:43 Last Admin: 04/28/18 16:03 Dose: 0.5 mg Magnesium Hydroxide (Milk Of Magnesia) 30 ml PO HS PRN PRN Reason: Constipation Multivitamins/Vitamin C (Theragran) 1 tab PO DAILY BE Stop: 06/24/18 08:59 Last Admin: 05/09/18 09:09 Dose: 1 tab Quetiapine Fumarate (Seroquel) 25 mg PO HS BE; Protocol Stop: 06/30/18 20:59 Last Admin: 05/08/18 20:58 Dose: 25 mg Zolpidem Tartrate (Ambien) 5 mg PO HS PRN PRN Reason: Insomnia Stop: 06/23/18 12:43 Last Admin: 05/08/18 23:15 Dose: 5 mg General: No acute distress HEENT: Atraumatic, PERRLA Neck: Supple Cardiovascular: Regular rate, Normal S1, Normal S2 Lungs: Clear to auscultation Assessment/Plan - Problem List Patient Problems: All Active Problems Dementia (Acute) F03.90 Major depressive disorder (Acute) F32.9 - Assessment Assessment: major depressive disorder dementia - Plan Plan: continue current plant treatment Nutritional Asmnt/Malnutr-PDOC - Dietary Evaluation Malnutrition Findings (Please click <Entered> for more info): Nutritional Asmnt/Malnutrition Start: 04/28/18 14: 41 Text: Status: Complete Freq: Protocol: Document 04/28/18 14:41 SAY (Rec: 04/28/18 14:51 SAY [id number]) Nutritional Asmnt/Malnutrition Patient General Information Nutritional Screening Moderate Risk Diagnosis psychosis Pertinent Medical Hx/Surgical Hx no major medical problems or surgical problem per H&P Subjective Information Pt seen eating lunch in dining room at time of visit. Unclear speech, not able to understand. Per EMR, PO intake 100% of meals. Current Diet Order/ Nutrition Support mech soft chopped Pertinent Medications theragran Pertinent Labs no labs Nutritional Hx/Data Height 1.65 m Height (Calculated Centimeters) 165.1 Current Weight (lbs) 69.853 kg Weight (Calculated Kilograms) 69.9 Weight (Calculated Grams) 29667.2 [place] Body Weight 36 Body Mass Index (BMI) 25.6 Weight Status Overweight GI Symptoms GI Symptoms None Last BM 04/27 Difficult in: None Skin Integrity/Comment: intact Current %PO Good (75-100%) Estimated Nutritional Goals BEE in Kcals: Using Current wt Calories/Kcals/Kg 25-30 Kcals Calculated 2962-7542 Protein: Using Current wt Protein g/k Protein Calculated 70 Fluid: ml 1750-2250ml (1ml/kcal) Nutritional Problem No current Nutrition Prob Problem N/A Malnutrition Alert Is there a minimum of two criteria No selected? Query Text:Check all the applicable criteria. A minimum of two criteria are recommended for diagnosis of either severe or non-severe malnutrition. Malnutrition Related to Morbid Obesity Malnutrition related to morbid obesity No Intervention/Recommendation Comments 1. Continue with current diet as ordered. 2. Monitor PO intake, wt, labs and skin integrity 3. F/U as low risk in 7 days, 05/05 Expected Outcomes/Goals Expected Outcomes/Goals 1. PO intake to meet at least 75% of nutritional needs. 2. Wt stability, skin to remain intact, labs to approach WNL.
--- NOTE | 2018-05-09 12:44 | Progress Notes ---
DATE: 05/09/2018 SUBJECTIVE: Staff was spoken to. The patient is interviewed. Mood is noted to be irritable. Affect is constricted. Coping skills at this time are noted to be poor. Insight and judgment are noted to be poor. The patient has no place to return to. The patient is pacing most of the time. Paranoia is noted, but the patient's coping skills are noted to be very poor. ASSESSMENT: The patient is still awaiting placement. PLAN: To continue the patient with the supportive therapy and followup. JOB# [id number]
[2018-05-10] MEDS: Multivitamin Tab PO SCH (09:09)
--- NOTE | 2018-05-10 10:13 | General Progress Note ---
Subjective - Review of Systems Events since last encounter: patient still irritable awake denies pain awaiting placement Objective - Physical Exam Vitals and I&O: Vital Signs Temp 97.8 F 05/09/18 20:56 Pulse 88 05/09/18 20:56 Resp 20 05/09/18 20:56 BP 143/73 05/09/18 20:56 Pulse Ox 100 05/09/18 20:56 Intake & Output 05/09/18 05/10/18 05/10/18 18:59 06:59 18:59 Intake Total 1500 120 Balance 1500 120 Intake: Oral 1500 120 Other: # Voids 3 # Bowel Movements 0 Active Medications: Current Medications Acetaminophen (Tylenol) 650 mg PO Q4HR PRN PRN Reason: Mild Pain / Temp above 100 Stop: 06/23/18 12:43 Al Hydrox/Mg Hydrox/Simethicone (Maalox) 30 ml PO Q4HR PRN PRN Reason: GI DISTRESS Stop: 06/23/18 12:43 Escitalopram Oxalate (Lexapro) 10 mg PO DAILY BE; Protocol Stop: 06/24/18 08:59 Last Admin: 05/10/18 09:09 Dose: 10 mg Lorazepam (Ativan) 0.5 mg PO Q4HR PRN; Protocol PRN Reason: Anxiety Stop: 05/24/18 12:43 Last Admin: 05/10/18 09:09 Dose: 0.5 mg Magnesium Hydroxide (Milk Of Magnesia) 30 ml PO HS PRN PRN Reason: Constipation Multivitamins/Vitamin C (Theragran) 1 tab PO DAILY BE Stop: 06/24/18 08:59 Last Admin: 05/10/18 09:09 Dose: 1 tab Quetiapine Fumarate (Seroquel) 25 mg PO HS BE; Protocol Stop: 06/30/18 20:59 Last Admin: 05/09/18 20:53 Dose: 25 mg Zolpidem Tartrate (Ambien) 5 mg PO HS PRN PRN Reason: Insomnia Stop: 06/23/18 12:43 Last Admin: 05/09/18 20:54 Dose: 5 mg General: No acute distress HEENT: Atraumatic, PERRLA Neck: Supple Cardiovascular: Regular rate, Normal S1, Normal S2 Lungs: Clear to auscultation Assessment/Plan - Problem List Patient Problems: All Active Problems Dementia (Acute) F03.90 Major depressive disorder (Acute) F32.9 - Assessment Assessment: major depressive disorder dementia - Plan Plan: continue current plant treatment awaiting placement Nutritional Asmnt/Malnutr-PDOC - Dietary Evaluation Malnutrition Findings (Please click <Entered> for more info): Nutritional Asmnt/Malnutrition Start: 04/28/18 14: 41 Text: Status: Complete Freq: Protocol: Document 04/28/18 14:41 SAY (Rec: 04/28/18 14:51 [id number]) Nutritional Asmnt/Malnutrition Patient General Information Nutritional Screening Moderate Risk Diagnosis psychosis Pertinent Medical Hx/Surgical Hx no major medical problems or surgical problem per H&P Subjective Information Pt seen eating lunch in dining room at time of visit. Unclear speech, not able to understand. Per EMR, PO intake 100% of meals. Current Diet Order/ Nutrition Support mech soft chopped Pertinent Medications theragran Pertinent Labs no labs Nutritional Hx/Data Height 1.65 m Height (Calculated Centimeters) 165.1 Current Weight (lbs) 69.853 kg Weight (Calculated Kilograms) 69.9 Weight (Calculated Grams) 64993.2 [place] Body Weight 36 Body Mass Index (BMI) 25.6 Weight Status Overweight GI Symptoms GI Symptoms None Last BM 04/27 Difficult in: None Skin Integrity/Comment: intact Current %PO Good (75-100%) Estimated Nutritional Goals BEE in Kcals: Using Current wt Calories/Kcals/Kg 25-30 Kcals Calculated 0318-2688 Protein: Using Current wt Protein g/k Protein Calculated 70 Fluid: ml 1750-2250ml (1ml/kcal) Nutritional Problem No current Nutrition Prob Problem N/A Malnutrition Alert Is there a minimum of two criteria No selected? Query Text:Check all the applicable criteria. A minimum of two criteria are recommended for diagnosis of either severe or non-severe malnutrition. Malnutrition Related to Morbid Obesity Malnutrition related to morbid obesity No Intervention/Recommendation Comments 1. Continue with current diet as ordered. 2. Monitor PO intake, wt, labs and skin integrity 3. F/U as low risk in 7 days, 05/05 Expected Outcomes/Goals Expected Outcomes/Goals 1. PO intake to meet at least 75% of nutritional needs. 2. Wt stability, skin to remain intact, labs to approach WNL.
--- NOTE | 2018-05-10 20:50 | Progress Notes ---
DATE: 05/10/2018 SUBJECTIVE: Staff was spoken to. The patient is interviewed. Mood is noted to be irritable. Coping skills are noted to be poor. Sleep and appetite also noted to be limited. The patient has been having difficult time to cope with the stress. The patient is stating that he has been in here for a while and he needs to go home and the patient has no place to return to. marketing traffic manager has been trying to work with the patient and look for placement. ASSESSMENT: The patient is stabilizing and awaiting placement. PLAN: To continue the patient with the supportive therapy and followup. JOB# [id number]
[2018-05-11] MEDS: Multivitamin Tab PO SCH (09:10)
--- NOTE | 2018-05-12 04:20 | Progress Notes ---
DATE: 05/11/2018 PSYCHIATRIC PROGRESS NOTE SUBJECTIVE: Staff was spoken to. The patient is interviewed. Mood is noted to be anxious. Affect is appropriate. The patient is pacing on the unit. Insight and judgment are noted to be still impaired. Impulse control seems to be fair. The patient has paranoia, but denies any command hallucinations. No side effects to the medications are noted. The patient has no place to return to. mixer tender have been looking for placement for this patient. ASSESSMENT: The patient is still paranoid. PLAN: To continue the patient with the Seroquel and escitalopram and followup. JOB# [id number]
[2018-05-12] MEDS: Multivitamin Tab PO SCH (08:54)
--- NOTE | 2018-05-12 15:27 | General Progress Note ---
Subjective - Review of Systems Events since last encounter: patient is paranoid anxious denies pain Objective - Physical Exam Vitals and I&O: Vital Signs Temp 97.5 F 05/11/18 14:00 Pulse 82 05/11/18 14:00 Resp 20 05/11/18 15:20 BP 130/78 05/11/18 14:00 Pulse Ox 96 05/11/18 14:00 Intake & Output 05/11/18 05/12/18 05/12/18 18:59 06:59 18:59 Intake Total 800 120 Balance 800 120 Intake: Oral 800 120 Other: # Voids 3 3 # Bowel Movements 1 Stool Characteristics Formed Formed Active Medications: Current Medications Acetaminophen (Tylenol) 650 mg PO Q4HR PRN PRN Reason: Mild Pain / Temp above 100 Stop: 06/23/18 12:43 Al Hydrox/Mg Hydrox/Simethicone (Maalox) 30 ml PO Q4HR PRN PRN Reason: GI DISTRESS Stop: 06/23/18 12:43 Escitalopram Oxalate (Lexapro) 10 mg PO DAILY BE; Protocol Stop: 06/24/18 08:59 Last Admin: 05/12/18 08:55 Dose: 10 mg Lorazepam (Ativan) 0.5 mg PO Q4HR PRN; Protocol PRN Reason: Anxiety Stop: 05/24/18 12:43 Last Admin: 05/12/18 08:55 Dose: 0.5 mg Magnesium Hydroxide (Milk Of Magnesia) 30 ml PO HS PRN PRN Reason: Constipation Multivitamins/Vitamin C (Theragran) 1 tab PO DAILY BE Stop: 06/24/18 08:59 Last Admin: 05/12/18 08:54 Dose: 1 tab Quetiapine Fumarate (Seroquel) 25 mg PO HS BE; Protocol Stop: 06/30/18 20:59 Last Admin: 05/11/18 20:26 Dose: 25 mg Zolpidem Tartrate (Ambien) 5 mg PO HS PRN PRN Reason: Insomnia Stop: 06/23/18 12:43 Last Admin: 05/11/18 20:26 Dose: 5 mg General: No acute distress HEENT: Atraumatic, PERRLA Neck: Supple Cardiovascular: Regular rate, Normal S1, Normal S2 Lungs: Clear to auscultation Assessment/Plan - Problem List Patient Problems: All Active Problems Dementia (Acute) F03.90 Major depressive disorder (Acute) F32.9 - Assessment Assessment: major depressive disorder dementia - Plan Plan: continue current plant treatment awaiting placement Nutritional Asmnt/Malnutr-PDOC - Dietary Evaluation Malnutrition Findings (Please click <Entered> for more info): Nutritional Asmnt/Malnutrition Start: 04/28/18 14: 41 Text: Status: Complete Freq: Protocol: Document 04/28/18 14:41 LCKERENG (Rec: 04/28/18 14:51 LCHENG [id number]) Nutritional Asmnt/Malnutrition Patient General Information Nutritional Screening Moderate Risk Diagnosis psychosis Pertinent Medical Hx/Surgical Hx no major medical problems or surgical problem per H&P Subjective Information Pt seen eating lunch in dining room at time of visit. Unclear speech, not able to understand. Per EMR, PO intake 100% of meals. Current Diet Order/ Nutrition Support mech soft chopped Pertinent Medications theragran Pertinent Labs no labs Nutritional Hx/Data Height 1.65 m Height (Calculated Centimeters) 165.1 Current Weight (lbs) 69.853 kg Weight (Calculated Kilograms) 69.9 Weight (Calculated Grams) 28484.2 [place] Body Weight 36 Body Mass Index (BMI) 25.6 Weight Status Overweight GI Symptoms GI Symptoms None Last BM 04/27 Difficult in: None Skin Integrity/Comment: intact Current %PO Good (75-100%) Estimated Nutritional Goals BEE in Kcals: Using Current wt Calories/Kcals/Kg 25-30 Kcals Calculated 4763-3341 Protein: Using Current wt Protein g/k Protein Calculated 70 Fluid: ml 1750-2250ml (1ml/kcal) Nutritional Problem No current Nutrition Prob Problem N/A Malnutrition Alert Is there a minimum of two criteria No selected? Query Text:Check all the applicable criteria. A minimum of two criteria are recommended for diagnosis of either severe or non-severe malnutrition. Malnutrition Related to Morbid Obesity Malnutrition related to morbid obesity No Intervention/Recommendation Comments 1. Continue with current diet as ordered. 2. Monitor PO intake, wt, labs and skin integrity 3. F/U as low risk in 7 days, 05/05 Expected Outcomes/Goals Expected Outcomes/Goals 1. PO intake to meet at least 75% of nutritional needs. 2. Wt stability, skin to remain intact, labs to approach WNL.
--- NOTE | 2018-05-13 02:49 | Progress Notes ---
DATE: 05/12/2018 PSYCHIATRIC PROGRESS NOTE SUBJECTIVE: Staff was spoken to. The patient is interviewed. Mood is noted to be irritable. Affect is constricted. Insight and judgment at this time are noted to be impaired. Impulse control is noted to be limited. Coping skills are also noted to be limited. The patient has been having difficult time to cope with the stress. The patient is stating that he is not able to find placement. The patient has been able to ambulate. There is no problems with the speech. However, the placement particularly at the [facility] has been requesting for the patient to had a PT and speech therapy evaluation for the patient to be accepted. med care manager is going to be contacted tomorrow and it seems to be very little of the criteria for the patient to be in the inpatient unit, possibly the patient is going to be discharged tomorrow and if the placement is available. JOB# [id number]
[2018-05-13] MEDS: Multivitamin Tab PO SCH (08:46)
--- NOTE | 2018-05-13 11:23 | General Progress Note ---
Subjective - Review of Systems Events since last encounter: patient is anxious irritable denies pain Objective - Physical Exam Vitals and I&O: Vital Signs Temp 97.5 F 05/11/18 14:00 Pulse 82 05/11/18 14:00 Resp 20 05/11/18 15:20 BP 130/78 05/11/18 14:00 Pulse Ox 96 05/11/18 14:00 Intake & Output 05/12/18 05/13/18 05/13/18 18:59 06:59 18:59 Other: Stool Characteristics Formed Active Medications: Current Medications Acetaminophen (Tylenol) 650 mg PO Q4HR PRN PRN Reason: Mild Pain / Temp above 100 Stop: 06/23/18 12:43 Al Hydrox/Mg Hydrox/Simethicone (Maalox) 30 ml PO Q4HR PRN PRN Reason: GI DISTRESS Stop: 06/23/18 12:43 Escitalopram Oxalate (Lexapro) 10 mg PO DAILY BE; Protocol Stop: 06/24/18 08:59 Last Admin: 05/13/18 08:46 Dose: 10 mg Lorazepam (Ativan) 0.5 mg PO Q4HR PRN; Protocol PRN Reason: Anxiety Stop: 05/24/18 12:43 Last Admin: 05/12/18 08:55 Dose: 0.5 mg Magnesium Hydroxide (Milk Of Magnesia) 30 ml PO HS PRN PRN Reason: Constipation Multivitamins/Vitamin C (Theragran) 1 tab PO DAILY BE Stop: 06/24/18 08:59 Last Admin: 05/13/18 08:46 Dose: 1 tab Quetiapine Fumarate (Seroquel) 25 mg PO HS BE; Protocol Stop: 06/30/18 20:59 Last Admin: 05/12/18 20:33 Dose: 25 mg Zolpidem Tartrate (Ambien) 5 mg PO HS PRN PRN Reason: Insomnia Stop: 06/23/18 12:43 Last Admin: 05/12/18 20:33 Dose: 5 mg General: No acute distress HEENT: Atraumatic, PERRLA Neck: Supple Cardiovascular: Regular rate, Normal S1, Normal S2 Lungs: Clear to auscultation Assessment/Plan - Problem List Patient Problems: All Active Problems Dementia (Acute) F03.90 Major depressive disorder (Acute) F32.9 - Assessment Assessment: major depressive disorder dementia - Plan Plan: continue current plant treatment awaiting placement Nutritional Asmnt/Malnutr-PDOC - Dietary Evaluation Malnutrition Findings (Please click <Entered> for more info): Nutritional Asmnt/Malnutrition Start: 04/28/18 14: 41 Text: Status: Complete Freq: Protocol: Document 04/28/18 14:41 LCHENG (Rec: 04/28/18 14:51 [email or web address] [id number]) Nutritional Asmnt/Malnutrition Patient General Information Nutritional Screening Moderate Risk Diagnosis psychosis Pertinent Medical Hx/Surgical Hx no major medical problems or surgical problem per H&P Subjective Information Pt seen eating lunch in dining room at time of visit. Unclear speech, not able to understand. Per EMR, PO intake 100% of meals. Current Diet Order/ Nutrition Support mech soft chopped Pertinent Medications theragran Pertinent Labs no labs Nutritional Hx/Data Height 1.65 m Height (Calculated Centimeters) 165.1 Current Weight (lbs) 69.853 kg Weight (Calculated Kilograms) 69.9 Weight (Calculated Grams) 26363.2 [place] Body Weight 36 Body Mass Index (BMI) 25.6 Weight Status Overweight GI Symptoms GI Symptoms None Last BM 04/27 Difficult in: None Skin Integrity/Comment: intact Current %PO Good (75-100%) Estimated Nutritional Goals BEE in Kcals: Using Current wt Calories/Kcals/Kg 25-30 Kcals Calculated 9347-4822 Protein: Using Current wt Protein g/k Protein Calculated 70 Fluid: ml 1750-2250ml (1ml/kcal) Nutritional Problem No current Nutrition Prob Problem N/A Malnutrition Alert Is there a minimum of two criteria No selected? Query Text:Check all the applicable criteria. A minimum of two criteria are recommended for diagnosis of either severe or non-severe malnutrition. Malnutrition Related to Morbid Obesity Malnutrition related to morbid obesity No Intervention/Recommendation Comments 1. Continue with current diet as ordered. 2. Monitor PO intake, wt, labs and skin integrity 3. F/U as low risk in 7 days, 05/05 Expected Outcomes/Goals Expected Outcomes/Goals 1. PO intake to meet at least 75% of nutritional needs. 2. Wt stability, skin to remain intact, labs to approach WNL.
--- NOTE | 2018-05-13 13:33 | Progress Notes ---
DATE: 05/13/2018 SUBJECTIVE: Staff was spoken to. The patient is interviewed. Mood is noted to be anxious. The patient is denying any auditory hallucinations. No delusions are noted. Insight and judgment at this time are noted to be improving. Impulse control is also noted to be fair, but the patient's case checker is looking for placement for the patient, so far none is available. The patient is currently on Lexapro and Seroquel and has been able to tolerate the medication. ASSESSMENT: The patient is stabilizing. PLAN: To discharge the patient today for followup on outpatient basis. JOB# [id number]
--- NOTE | 2018-05-14 20:01 | Discharge Summary ---
DATE OF DISCHARGE: 05/13/2018 IDENTIFYING DATA: The patient is a 68-year-old male admitted on a 5150 for being gravely disabled. CHIEF COMPLAINT: "I'm feeling depressed." DIAGNOSES AT THE TIME OF ADMISSION: AXIS I: Major depressive disorder, first episode. 1b. Dementia. AXIS II: None. AXIS III: As per Dr. Hung. HISTORY OF PRESENT ILLNESS: Please refer to the 04/25/2018 dictation done by me. Physical examination was done by Dr. Hung and is noted to be within normal limits. HOSPITAL COURSE AND RESPONSE TO TREATMENT: The patient has the blood work done and that have been reviewed by Dr. Hung. The patient has refused to get any of the blood work done and the patient has been very agitated and screaming and yelling at the staff members whenever they have been trying to get the blood work. The patient has been closely monitored on the unit, provided with supportive psychotherapy. The patient has been placed on the Seroquel, which has gradually increased to 25 mg and the patient has been not presenting with any problems with the behavior and the patient was finally placed on 05/14/2018 with recommendation that he is going to be seeking treatment on an outpatient basis. MENTAL STATUS EXAMINATION: At the time of the discharge, the patient's mood is noted to be irritable. Affect is constricted. Insight and judgment at this time are noted to be improving. Impulse control seems to be fair. Coping skills are also noted to be fair. DIAGNOSES AT THE TIME OF DISCHARGE: AXIS I: Psychotic disorder, not otherwise specified. AXIS II: None. AXIS III: None. AFTERCARE PLAN: The patient is discharged to be followed up on an outpatient basis. PROGNOSIS AT THE TIME OF DISCHARGE: Noted to be fair with the treatment. JOB# [id number]
== END 2018-05-13 15:30 | DRG 885 ==
LOC: GERO 12:07
PROVIDERS: ADMIT Psychiatry & Neurology Psychiatry; ATTEND Psychiatry & Neurology Psychiatry
DX: F32.2 Major depressive disorder, single episode, severe without psychotic features (principal); F03.90 Unspecified dementia, unspecified severity, without behavioral disturbance, psychotic disturbance, mood disturbance, and anxiety; F41.9 Anxiety disorder, unspecified; M19.90 Unspecified osteoarthritis, unspecified site; G47.00 Insomnia, unspecified
CPT/HCPCS: 71045-TC; 90899; G0410; X3401; Z7610